=== PATIENT | female | born 1955 | race Caucasian/White ===

== ENCOUNTER 2024-07-03 05:20 | Day surgery (SDC) | payer OTHER, MEDICAID ==
[~2024-07-03] VITALS: Ht 157.5 cm; Wt 68.1 kg
[~2024-07-03 05:20] MED LIST: KETOROLAC TROMETHAMINE 0.5% 5 ML OPHTHALMIC SOLUTION ONE; MOXIFLOXACIN HCL 0.5% 3 ML OPHTHALMIC SOLUTION ONE; PHENYLEPHRINE HCL 2.5% 2 ML OPHTHALMIC SOLUTION ONE; RINGERS SOLUTION,LACTATED 500 ML IV ONE; TROPICAMIDE 1% 2 ML OPHTHALMIC SOLUTION ONE
[2024-07-03] MEDS ORDERED: FOLI-130 PO (05:52)
[2024-07-03] MEDS ORDERED: ROPI2TAB26 PO (05:52)
[2024-07-03] MEDS ORDERED: AMLO-386 PO (05:52)
[2024-07-03] MEDS ORDERED: QUET25TA PO (05:52)
[2024-07-03] MEDS ORDERED: CHOL200059 PO (05:52)
[2024-07-03] MEDS ORDERED: FAMO20 PO (05:52)
[2024-07-03] MEDS ORDERED: LEFL10TA19 PO (05:52)
[2024-07-03] MEDS ORDERED: ATOR40TA28 PO (05:52)
[2024-07-03] MEDS ORDERED: ESCI-8 PO (05:52)
[2024-07-03] MEDS ORDERED: DIVA250T45 PO (05:52)
[2024-07-03] MEDS ORDERED: HYDR25TA2 PO (05:52)
[2024-07-03] MEDS ORDERED: HYDR200T38 PO (05:52)
[2024-07-03] MEDS: RINGERS SOLUTION,LACTATED 500 ML IV ONE (05:59)
[2024-07-03] MEDS: KETOROLAC TROMETHAMINE 0.5% 5 ML OPHTHALMIC SOLUTION OS SCH (06:00)
[2024-07-03] MEDS: PHENYLEPHRINE HCL 2.5% 2 ML OPHTHALMIC SOLUTION OS SCH (06:00)
[2024-07-03] MEDS: TROPICAMIDE 1% 2 ML OPHTHALMIC SOLUTION OS SCH (06:00)
[2024-07-03] MEDS: MOXIFLOXACIN HCL 0.5% 3 ML OPHTHALMIC SOLUTION OS SCH (06:00)
[2024-07-03] MEDS ORDERED: CHONDR SULF A SOD/HYALURONATE 1.05 ML KIT IO ONE (06:18)
[2024-07-03] MEDS ORDERED: HYALURONATE SOD 8.5MG/0.85ML 10 MG/ML SYRINGE IO ONE (06:18)
[2024-07-03] MEDS ORDERED: ACETYLCHOLINE CHLORIDE 1 EA INTRAOCULAR SOLUTION KIT IO ONE (06:29)
[2024-07-03] MEDS ORDERED: FentaNYL CITRATE PF 100 MCG/2 ML VIAL ONE (06:40)
[2024-07-03] MEDS ORDERED: MIDAZOLAM HCL 2 MG/2 ML VIAL ONE (06:40)
[2024-07-03] MEDS: BALANCED SALT 15 ML OPHTHALMIC IRRIG.SOLN ONE ×2 (07:10)
[2024-07-03] MEDS: EPINEPHrine 1:1,000 [1 MG/ML] VIAL ONE (14:32)
[2024-07-03] MEDS: LIDOCAINE/PF 1% 2 ML VIAL ONE (14:35)
[2024-07-03] MEDS: POVIDONE-IODINE 5% 30 ML OPHTHALMIC SOLUTION ONE (14:35)
[2024-07-03] MEDS: TETRACAINE HCL/PF 0.5% 4 ML OPHTHALMIC SOLUTION ONE (15:00)
== END 2024-07-03 09:15 | disposition home or self-care (01) ==
LOC: SURGERY 05:20
PROVIDERS: ATTEND Ophthalmology
DX: H25.12 Age-related nuclear cataract, left eye (principal); I10 Essential (primary) hypertension; M06.9 Rheumatoid arthritis, unspecified; M17.10 Unilateral primary osteoarthritis, unspecified knee; M32.9 Systemic lupus erythematosus, unspecified; Z79.899 Other long term (current) drug therapy; Z98.818 Other dental procedure status
CPT/HCPCS: 66984; 93005; J7321; J0171; J3010; J3490; J2250; J7120; V2632